=== PATIENT | female | born 1940 | race Caucasian/White ===

== ENCOUNTER 2020-04-02 10:40 | Emergency (ER) | payer MEDICARE ==
[2020-04-02 10:49] VITALS: BP 127/71
[2020-04-02] MEDS ORDERED: Sodium Chloride 0.9% 10 ML Syringe FLUSH PRN (10:53)
[2020-04-02] MEDS ORDERED: Aspirin 81 MG Tab.Chew PO ONE (10:53)
--- NOTE | 2020-04-02 11:13 | EDM.PDOC ---
ED HPI GENERAL MEDICAL PROBLEM - General Chief Complaint: Cardiovascular Problem Stated Complaint: FROM STRESS TEST Time Seen by Provider: 04/02/20 11:10 Source of Information: Reports: Patient, Provider, RN Notes Reviewed History Limitations: Reports: No Limitations - History of Present Illness INITIAL COMMENTS - FREE TEXT/NARRATIVE: 79-year-old female presents emergency department today complaint of chest pain, she was currently undergoing a stress test this morning developed chest pain from her stress test lasted about [address] depressions were appreciated in the inferior leads I did have an opportunity to discuss her case with the supervising physician. She states she has been having chest pain on and off mainly with exertion for the last 4 months it has always gone away with rest however today it seemed to last a little bit longer. She did have a bout of chest pain last night without exertion lasted about 30 minutes. She has no known history of coronary artery disease is a heavy tobacco user was diaphoretic today but no nausea. Pain-free at this time - Related Data Allergies Allergy/AdvReac Type Severity Reaction Status Date / Time No Known Allergies Allergy Verified 04/02/20 10:43 Home Meds: Home Meds amLODIPine [Norvasc] 10 mg PO BEDTIME 04/29/14 [History] Acetaminophen [Arthritis Pain Relief] 650 mg PO Q4H PRN 07/01/15 [History] Albuterol Sulfate [Proventil Hfa] 6.7 gm IH BID PRN 03/30/20 [History] Cholecalciferol (Vitamin D3) [Vitamin D] 2,000 unit PO BEDTIME 03/30/20 [History] Past Medical History HEENT History: Reports: Cataract, Impaired Vision Cardiovascular History: Reports: High Cholesterol, Hypertension Respiratory History: Reports: COPD 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: 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: Musculoskeletal History: Reports: Fracture, Osteoarthritis Hematologic History: Reports: Blood Transfusion(s) - Infectious Disease History Infectious Disease History: Reports: Chicken Pox, Measles, Mumps - Past Surgical History HEENT Surgical History: Reports: Cataract Surgery Cardiovascular Surgical History: Reports: AAA Repair, Aneurysm, Other (See Below) Other Cardiovascular Surgeries/Procedures: coils GI Surgical History: Reports: Colonoscopy, Hernia Repair/Other Musculoskeletal Surgical History: Reports: Hip Replacement Dermatological Surgical History: Reports: None Social & Family History - Tobacco Use Smoking Status *Q: Current Every Day Smoker Years of Tobacco use: 40 Packs/Tins Daily: 0.5 ED ROS GENERAL - Review of Systems Review Of Systems: See Below Constitutional: Reports: Diaphoresis HEENT: Reports: No Symptoms Respiratory: Reports: Shortness of Breath Cardiovascular: Reports: Chest Pain GI/Abdominal: Denies: Nausea ED EXAM, GENERAL - Physical Exam Exam: See Below Exam Limited By: No Limitations General Appearance: Alert, WD/WN, No Apparent Distress Respiratory/Chest: No Respiratory Distress, Lungs Clear, Normal Breath Sounds, No Accessory Muscle Use, Chest Non-Tender Cardiovascular: Regular Rate, Rhythm, No Murmur GI/Abdominal: Soft, Non-Tender Course - Vital Signs Last Recorded V/S: Last Vital Signs Temp 96.1 F L 04/02/20 10:45 Pulse 106 H 04/02/20 10:45 Resp 20 04/02/20 10:45 BP 127/71 04/02/20 10:45 Pulse Ox 96 04/02/20 10:45 - Orders/Labs/Meds Orders: Active Orders 24 hr Category Date Time Status Cardiac Monitoring [RC] .As Directed Care 04/02/20 10:53 Active EKG Documentation Completion [RC] ASDIRECTED Care 04/02/20 10:54 Active Peripheral IV Care [RC] . DIRECTED Care 04/02/20 10:54 Active Sodium Chloride 0.9% [Saline Flush] Med 04/02/20 10:53 Active 10 ml FLUSH ASDIRECTED PRN Peripheral IV Insertion Adult [OM.PC] Stat Oth 04/02/20 10:53 Ordered Saline Lock Insert [OM.PC] Stat Oth 04/02/20 10:53 Ordered EKG 12 Lead [EK] Stat Ther 04/02/20 10:54 Ordered Medication Orders Sodium Chloride (Saline Flush) 10 ml FLUSH ASDIRECTED PRN PRN Reason: Keep Vein Open Labs: Laboratory Tests 04/02/20 04/02/20 Range/Units 11:05 11:05 WBC 7.1 (4.5-11.0) K/uL RBC 5.26 (3.30-5.50) M/uL Hgb 14.8 D (12.0-15.0) g/dL Hct 46.7 (36.0-48.0) % MCV 89 (80-98) fL MCH 28 (27-31) pg MCHC 32 (32-36) % Plt Count 228 (150-400) K/uL Neut % (Auto) 72 H (36-66) % Lymph % (Auto) 21 L (24-44) % [place] % (Auto) 7 H (2-6) % Eos % (Auto) 0 L (2-4) % Baso % (Auto) 0 (0-1) % Sodium 142 (140-148) mmol/L Potassium 3.7 (3.6-5.2) mmol/L Chloride 103 (100-108) mmol/L Carbon Dioxide 28 (21-32) mmol/L Anion Gap 11.4 (5.0-14.0) mmol/L BUN 18 (7-18) mg/dL Creatinine 0.8 (0.6-1.0) mg/dL Est Cr Clr Drug Dosing 37.75 mL/min Estimated GFR (MDRD) > 60 (>60) Glucose 106 (74-106) mg/dL Calcium 9.5 (8.5-10.1) mg/dL Total Bilirubin 0.4 (0.2-1.0) mg/dL AST 18 (15-37) U/L ALT 14 (12-78) U/L Alkaline Phosphatase 75 (46-116) U/L Troponin I 0.039 (0.000-0.056) ng/mL Total Protein 7.4 (6.4-8.2) g/dL Albumin 3.7 (3.4-5.0) g/dL Globulin 3.7 H (2.3-3.5) g/dL Albumin/Globulin Ratio 1.0 L (1.2-2.2) Meds: Medications Generic Name Dose Route Start Last Admin Trade Name Freq PRN Reason Stop Dose Admin Sodium Chloride 10 ml 04/02/20 10:53 Saline Flush FLUSH ASDIRECTED PRN Keep Vein Open Discontinued Medications Generic Name Dose Route Start Last Admin Trade Name Freq PRN Reason Stop Dose Admin Aspirin 324 mg 04/02/20 10:53 04/02/20 11:02 Aspirin PO 04/02/20 10:54 324 mg ONETIME ONE Administration Departure - Departure Time of Disposition: 12:22 Disposition: DC/Tfer to Acute Hospital 02 Reason for Transfer *Q: Primary PCI Indicated Condition: Fair Clinical Impression: Acute coronary syndrome Referrals: PCP,None [Primary Care Provider] - Forms: ED Department Discharge Sepsis Event Note (ED) - Evaluation Sepsis Screening Result: No Definite Risk - Focused Exam Vital Signs: Vital Signs Temp Pulse Resp BP Pulse Ox 04/02/20 10:45 96.1 F L 106 H 20 127/71 96 - My Orders Last 24 Hours: My Active Orders 04/02/20 10:53 Cardiac Monitoring [RC] .As Directed Sodium Chloride 0.9% [Saline Flush] 10 ml FLUSH ASDIRECTED PRN Peripheral IV Insertion Adult [OM.PC] Stat Saline Lock Insert [OM.PC] Stat 04/02/20 10:54 EKG Documentation Completion [RC] ASDIRECTED Peripheral IV Care [RC] . DIRECTED EKG 12 Lead [EK] Stat - Assessment/Plan Last 24 Hours: My Active Orders 04/02/20 10:53 Cardiac Monitoring [RC] .As Directed Sodium Chloride 0.9% [Saline Flush] 10 ml FLUSH ASDIRECTED PRN Peripheral IV Insertion Adult [OM.PC] Stat Saline Lock Insert [OM.PC] Stat 04/02/20 10:54 EKG Documentation Completion [RC] ASDIRECTED Peripheral IV Care [RC] . DIRECTED EKG 12 Lead [EK] Stat Plan: Assessment Acuity = acute Site and laterality = acute coronary syndrome unstable angina Etiology = probable underlying coronary artery disease Manifestations = chest pain with resolution Location of injury = Home Lab values = CBC, CMP unremarkable troponin within the normal range of 0.039 of undetermined significance chest x-ray shows no acute process EKG demonstrates a sinus rhythm with no ST elevation or depression however the EKGs from the stress test do show ST depressions in leads II, III and aVF consistent with an ischemia this did resolve on post EKG Plan Call discussed case Dr. Walker [address] [facility]aran kindly excepted the patient in transport will be transported via EMS ground thus far she has received aspirin and 1 nitro This note was dictated using [employer] voice recognition software please call with any questions on syntax or grammar.
--- NOTE | 2020-04-02 11:27 | CR ---
CHEST: Portable 04/02/2020 at 11:11 AM CLINICAL HISTORY:Chest pain COMPARISON:CT November 2019 FINDINGS: Lungs are emphysematous. Heart size and pulmonary vascularity are normal. There are atherosclerotic changes in the aorta.. No infiltrates are seen. There is no pleural effusion Impression: Emphysematous changes No acute cardiopulmonary process.
[2020-04-02 12:32] VITALS: PULSE 72
== END 2020-04-02 12:58 ==
LOC: JP.ED 10:40
DX: I24.9 Acute ischemic heart disease, unspecified (principal); I10 Essential (primary) hypertension; J44.9 Chronic obstructive pulmonary disease, unspecified; F17.210 Nicotine dependence, cigarettes, uncomplicated; Z79.899 Other long term (current) drug therapy
CPT/HCPCS: 36415; 71045; 80053; 84484; 85025; 93005; 99285; A9270; 93010

== ENCOUNTER 2020-05-12 15:38 | Emergency (ER) | payer MEDICARE ==
--- NOTE | 2020-05-12 16:48 | EDM.PDOC ---
ED HPI GENERAL MEDICAL PROBLEM - General Chief Complaint: Cardiovascular Problem Stated Complaint: CHEST PAINS Time Seen by Provider: 05/12/20 16:48 Source of Information: Reports: Patient History Limitations: Reports: No Limitations - History of Present Illness INITIAL COMMENTS - FREE TEXT/NARRATIVE: for the past 10 days pt has had more chest pressure. She has recently been at [facility] and she had an angiogram which was quite abnormal. She was told that she could not have surgery and she could not have stents. Onset: Gradual, Other ( this has been going on for the past week but has gotten progressively worse. She huts or has pressure when she walks or moves around fast. ) Duration: Hour(s): Location: Reports: Chest Associated Symptoms: Reports: Chest Pain, Shortness of Breath, Other ( this is more of a pressure. ) Chest Pain Score (Numeric/FACES): 8 - Related Data Allergies Allergy/AdvReac Type Severity Reaction Status Date / Time No Known Allergies Allergy Verified 04/02/20 10:43 Home Meds: Home Meds amLODIPine [Norvasc] 10 mg PO BEDTIME 04/29/14 [History] Acetaminophen [Arthritis Pain Relief] 650 mg PO Q4H PRN 07/01/15 [History] Albuterol Sulfate [Proventil Hfa] 6.7 gm IH BID PRN 03/30/20 [History] Cholecalciferol (Vitamin D3) [Vitamin D] 2,000 unit PO BEDTIME 03/30/20 [History] Clopidogrel [Plavix] 75 mg PO DAILY 05/12/20 [History] Isosorbide Mononitrate [Isosorbide Mononitrate ER] 30 mg PO DAILY 05/12/20 [History] Nitroglycerin 0.4 mg SL ASDIRECTED PRN 05/12/20 [History] Rosuvastatin [Crestor] 20 mg PO DAILY 05/12/20 [History] Past Medical History HEENT History: Reports: Cataract, Impaired Vision Cardiovascular History: Reports: High Cholesterol, Hypertension Respiratory History: Reports: COPD 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: Reports: Colon Polyp STUDENT History: Reports: Musculoskeletal History: Reports: Fracture, Osteoarthritis Hematologic History: Reports: Blood Transfusion(s) - Infectious Disease History Infectious Disease History: Reports: Chicken Pox, Measles, Mumps - Past Surgical History HEENT Surgical History: Reports: Cataract Surgery Cardiovascular Surgical History: Reports: AAA Repair, Aneurysm, Other (See Below) Other Cardiovascular Surgeries/Procedures: coils GI Surgical History: Reports: Colonoscopy, Hernia Repair/Other Musculoskeletal Surgical History: Reports: Hip Replacement Dermatological Surgical History: Reports: None Social & Family History - Tobacco Use Tobacco Use Status *Q: Current Every Day Tobacco User Years of Tobacco use: 60 Packs/Tins Daily: 0.5 - Caffeine Use Caffeine Use: Reports: Coffee - Recreational Drug Use Recreational Drug Use: No ED ROS GENERAL - Review of Systems Review Of Systems: See Below Constitutional: Reports: Weakness HEENT: Reports: No Symptoms Respiratory: Reports: Shortness of Breath Cardiovascular: Reports: Other ( chest pressure. ) Endocrine: Reports: No Symptoms GI/Abdominal: Reports: No Symptoms : Reports: No Symptoms Musculoskeletal: Reports: No Symptoms Skin: Reports: No Symptoms Neurological: Reports: No Symptoms ED EXAM, GENERAL - Physical Exam Exam: See Below Free Text/Narrative:: pt is having mild chest pressure at this point She states this had gotten quite severe this afternoon and when she was walking around. Exam Limited By: No Limitations General Appearance: Alert, Anxious, Mild Distress Ears: Normal TMs Ear Exam: Right Ear: Other Nose: Normal Inspection Throat/Mouth: Normal Inspection Head: Atraumatic Neck: Normal Inspection Respiratory/Chest: No Respiratory Distress Cardiovascular: Regular Rate, Rhythm, Other (pt does not have chest wall tenderness. ) GI/Abdominal: Soft, Non-Tender (Female) Exam: Deferred Rectal (Female) Exam: Deferred Back Exam: Normal Inspection Extremities: Normal Inspection Neurological: Alert, Oriented, Normal Cognition Psychiatric: Anxious Course - Vital Signs Last Recorded V/S: Last Vital Signs Temp 36.4 C 05/12/20 16:12 Pulse 97 05/12/20 18:51 Resp 19 05/12/20 18:51 BP 107/74 05/12/20 18:51 Pulse Ox 97 05/12/20 18:51 - Orders/Labs/Meds Labs: Laboratory Tests 05/12/20 05/12/20 05/12/20 Range/Units 16:57 16:57 16:57 WBC 8.1 (4.5-11.0) K/uL RBC 4.83 (3.30-5.50) M/uL Hgb 14.0 (12.0-15.0) g/dL Hct 43.0 (36.0-48.0) % MCV 89 (80-98) fL MCH 29 (27-31) pg MCHC 33 (32-36) % Plt Count 260 (150-400) K/uL Neut % (Auto) 72 H (36-66) % Lymph % (Auto) 18 L (24-44) % [place] % (Auto) 8 H (2-6) % Eos % (Auto) 1 L (2-4) % Baso % (Auto) 1 (0-1) % APTT (27.0-36.0) sec Sodium 138 L (140-148) mmol/L Potassium 3.4 L (3.6-5.2) mmol/L Chloride 102 (100-108) mmol/L Carbon Dioxide 28 (21-32) mmol/L Anion Gap 11.4 (5.0-14.0) mmol/L BUN 13 (7-18) mg/dL Creatinine 0.7 (0.6-1.0) mg/dL Est Cr Clr Drug Dosing 43.15 mL/min Estimated GFR (MDRD) > 60 (>60) Glucose 105 (74-106) mg/dL Calcium 9.6 (8.5-10.1) mg/dL Total Bilirubin 0.3 (0.2-1.0) mg/dL AST 22 (15-37) U/L ALT 25 D (12-78) U/L Alkaline Phosphatase 73 (46-116) U/L Troponin I 0.114 H* (0.000-0.056) ng/mL Total Protein 7.2 (6.4-8.2) g/dL Albumin 3.8 (3.4-5.0) g/dL Globulin 3.4 (2.3-3.5) g/dL Albumin/Globulin Ratio 1.1 L (1.2-2.2) Urine Color (YELLOW) Urine Appearance (CLEAR) Urine pH (5.0-8.0) Ur Specific [place] (1.008-1.030) Urine Protein (NEGATIVE) mg/dL Urine Glucose (UA) (NEGATIVE) mg/dL Urine Ketones (NEGATIVE) mg/dL Urine Occult Blood (NEGATIVE) Urine Nitrite (NEGATIVE) Urine Bilirubin (NEGATIVE) Urine Urobilinogen (0.2-1.0) EU/dL Ur Leukocyte Esterase (NEGATIVE) Urine RBC (0-5) Urine WBC (0-5) Ur Epithelial Cells Amorphous Sediment Urine Bacteria Urine Mucus 05/12/20 05/12/20 Range/Units 17:15 18:11 WBC (4.5-11.0) K/uL RBC (3.30-5.50) M/uL Hgb (12.0-15.0) g/dL Hct (36.0-48.0) % MCV (80-98) fL MCH (27-31) pg MCHC (32-36) % Plt Count (150-400) K/uL Neut % (Auto) (36-66) % Lymph % (Auto) (24-44) % [place] % (Auto) (2-6) % Eos % (Auto) (2-4) % Baso % (Auto) (0-1) % APTT 25.4 L (27.0-36.0) sec Sodium (140-148) mmol/L Potassium (3.6-5.2) mmol/L Chloride (100-108) mmol/L Carbon Dioxide (21-32) mmol/L Anion Gap (5.0-14.0) mmol/L BUN (7-18) mg/dL Creatinine (0.6-1.0) mg/dL Est Cr Clr Drug Dosing mL/min Estimated GFR (MDRD) (>60) Glucose (74-106) mg/dL Calcium (8.5-10.1) mg/dL Total Bilirubin (0.2-1.0) mg/dL AST (15-37) U/L ALT (12-78) U/L Alkaline Phosphatase (46-116) U/L Troponin I (0.000-0.056) ng/mL Total Protein (6.4-8.2) g/dL Albumin (3.4-5.0) g/dL Globulin (2.3-3.5) g/dL Albumin/Globulin Ratio (1.2-2.2) Urine Color Yellow (YELLOW) Urine Appearance Clear (CLEAR) Urine pH 7.0 (5.0-8.0) Ur Specific [place] 1.020 (1.008-1.030) Urine Protein Negative (NEGATIVE) mg/dL Urine Glucose (UA) Negative (NEGATIVE) mg/dL Urine Ketones Negative (NEGATIVE) mg/dL Urine Occult Blood Negative (NEGATIVE) Urine Nitrite Negative (NEGATIVE) Urine Bilirubin Negative (NEGATIVE) Urine Urobilinogen 0.2 (0.2-1.0) EU/dL Ur Leukocyte Esterase Negative (NEGATIVE) Urine RBC 0-5 (0-5) Urine WBC 0-5 (0-5) Ur Epithelial Cells Rare Amorphous Sediment Few Urine Bacteria Moderate Urine Mucus Not seen Meds: Medications Discontinued Medications Generic Name Dose Route Start Last Admin Trade Name Freq PRN Reason Stop Dose Admin Aspirin 324 mg 05/12/20 16:49 05/12/20 16:53 Aspirin PO 05/12/20 16:50 324 mg ONETIME ONE Administration Clopidogrel Bisulfate 300 mg 05/12/20 18:05 05/12/20 18:18 Plavix PO 05/12/20 18:06 300 mg ONETIME ONE Administration Heparin Sodium (Porcine) 4,000 units 05/12/20 18:07 05/12/20 18:19 Heparin Sodium IVPUSH 05/12/20 18:08 4,000 units ONETIME ONE Administration Nitroglycerin Confirm 05/12/20 18:28 05/12/20 18:31 Nitrostat Administered 05/12/20 18:29 Not Given Dose 0.4 mg .ROUTE .STK-MED ONE Nitroglycerin 0.4 mg 05/12/20 18:28 05/12/20 18:31 Nitrostat SL 0.4 mg Q5M PRN Administration Chest Pain - Re-Assessments/Exams Free Text/Narrative Re-Assessment/Exam: 05/12/20 17:49 ekg shows some possible ischemia anterior lateral. Her trop is elevated to .114. She is not having alot of pain at this point. She does feel that exercise does make it worse. 05/12/20 17:49 05/12/20 18:01 05/12/20 18:07 this was discussed with Dr Li and he felt this should be relooked at She will be admitted to the hospitalist. Departure - Departure Time of Disposition: 19:15 Disposition: DC/Tfer to Acute Hospital 02 Reason for Transfer *Q: Primary PCI Indicated Condition: Fair Clinical Impression: Non-Q wave infarction, Coronary artery disease, Tobacco abuse Referrals: Denton Calles MD [Primary Care Provider] - Forms: ED Department Discharge Care Plan Goals: transfer to [facility]. Sepsis Event Note (ED) - Evaluation Sepsis Screening Result: No Definite Risk
[2020-05-12] MEDS ORDERED: Aspirin 81 MG Tab.Chew PO ONE (16:49)
[2020-05-12] MEDS ORDERED: Clopidogrel 75 MG Tab PO ONE (18:05)
[2020-05-12] MEDS ORDERED: Heparin Sodium 5,000 Units/ML Vial IVPUSH ONE (18:07)
[2020-05-12] MEDS ORDERED: Nitroglycerin 0.4 MG Tab.SL ONE (18:28)
[2020-05-12] MEDS ORDERED: Nitroglycerin 0.4 MG Tab.SL SL PRN (18:28)
[2020-05-12 18:52] VITALS: BP 107/74; PULSE 97
--- NOTE | 2020-05-13 09:03 | CR ---
CHEST: Portable 05/12/2020 at 5:14 PM CLINICAL HISTORY:SOB COMPARISON:04/02/2020 FINDINGS: Lungs are moderately emphysematous. There is a double density adjacent to the aortic arch. This correlates to aneurysmal dilatation seen on March CT. This appears more prominent on prior study which is likely related to patient position. No infiltrates are seen. THERE ARE NO EFFUSIONS IMPRESSION: Known aneurysmal dilatation of the aortic arch. This appears slightly more prominent on the current study which is likely positional in nature. Severe emphysematous changes
== END 2020-05-12 19:08 ==
LOC: JP.ED 15:38
DX: I21.4 Non-ST elevation (NSTEMI) myocardial infarction (principal); I25.10 Atherosclerotic heart disease of native coronary artery without angina pectoris; I10 Essential (primary) hypertension; E78.00 Pure hypercholesterolemia, unspecified; J44.9 Chronic obstructive pulmonary disease, unspecified; F17.210 Nicotine dependence, cigarettes, uncomplicated; Z79.02 Long term (current) use of antithrombotics/antiplatelets; Z79.899 Other long term (current) drug therapy
CPT/HCPCS: 36415; 71045; 80053; 81001; 84484; 85025; 85730; 93005; 93010; 96374; 99285; A9270; J1644

== ENCOUNTER 2021-10-11 08:55 | Emergency (ER) | payer MEDICARE ==
[2021-10-11 09:09] VITALS: BP 188/91; PULSE 80
[2021-10-11] MEDS ORDERED: Sodium Chloride 0.9% 10 ML Syringe FLUSH PRN (10:06)
[2021-10-11] MEDS ORDERED: Sodium Chloride 0.9% 1,000 ML IV SCH (10:15)
[2021-10-11] MEDS ORDERED: Propofol 200 MG/20 ML SDV ONE (10:45)
== END 2021-10-11 11:55 | disposition home or self-care (01) ==
LOC: JP.ED 08:55
DX: S73.005A Unspecified dislocation of left hip, initial encounter (principal); E78.00 Pure hypercholesterolemia, unspecified; I10 Essential (primary) hypertension; J44.9 Chronic obstructive pulmonary disease, unspecified; Z72.0 Tobacco use; Z79.899 Other long term (current) drug therapy; Z79.82 Long term (current) use of aspirin; X50.1XXA Overexertion from prolonged static or awkward postures, initial encounter
CPT/HCPCS: 73501-26-LT; 73501-LT; 99282; 99283-25; J2704; J3490; J7030

== ENCOUNTER 2023-08-14 07:38 | Observation (INO) | payer MEDICARE ==
[2023-08-14 07:54] LABS: BASOPHILS ABSOLUTE AUTO 0.06 K/uL (0.00-0.10); BASOPHILS PERCENT AUTO 0.3 % (0.1-1.3); HEMATOCRIT 47.4 % (34.3-46.0); HEMOGLOBIN 15.5 g/dL (11.2-15.5); IMMATURE GRAN ABSOLUTE AUTO 0.08 K/uL (0.00-0.23); IMMATURE GRAN PERCENT AUTO 0.4 % (0.0-0.7); LYMPHOCYTES PERCENT AUTO 7.8 % (11.4-47.7); MEAN CORPUSCULAR HEMOGLOBIN 28.9 pg (31.6-35.5); MEAN CORPUSCULAR HGB CONC 32.7 g/dL (31.6-35.5); MEAN CORPUSCULAR VOLUME 88.3 fL (81.4-99.0); MONOCYTES ABSOLUTE AUTO 1.76 K/uL (0.20-0.90); MONOCYTES PERCENT AUTO 9.2 % (3.3-12.6); NEUTROPHILS ABSOLUTE AUTO 15.81 K/uL (1.0-7.6); NEUTROPHILS PERCENT AUTO 82.3 % (40.0-78.1); PLATELET COUNT,PLT 218 K/uL (130-375); RED BLOOD CELL COUNT 5.37 M/uL (3.77-5.24); WHITE BLOOD CELL COUNT,WBC 19.2 K/uL (3.2-11.0)
[2023-08-14 08:12] LABS: INR 1.3; PROTHROMBIN TIME 12.8 sec (9.2-10.6)
[2023-08-14 08:15] LABS: BLOOD UREA NITROGEN,BUN 18 mg/dL (7-18); CALCIUM 8.9 mg/dL (8.5-10.1); CARBON DIOXIDE,CO2 28 mmol/L (21-32); CHLORIDE,CL 98 mmol/L (100-108); CREATINE KINASE,CK 560 U/L (26-192); CREATININE 1.2 mg/dL (0.6-1.0); ESTIMATED GFR 45 mL/min (>60); GLUCOSE RANDOM 311 mg/dL (74-106); POTASSIUM,K 3.2 mmol/L (3.6-5.2); SODIUM,NA 139 mmol/L (140-148)
[2023-08-14 08:16] LABS: ANION GAP 16.2 mmol/L (5.0-14.0)
[2023-08-14] MEDS ORDERED: hydrALAZINE 20 MG/ML SDV IVPUSH ONE (08:31)
[2023-08-14 10:16] VITALS: BP 97/52; PULSE 111
[2023-08-14] MEDS ORDERED: Ondansetron 4 MG Tab.DIS PO PRN (10:54)
[2023-08-14] MEDS ORDERED: Acetaminophen 650 MG Supp RECTAL PRN (10:54)
[2023-08-14] MEDS ORDERED: LORazepam ORAL Concentrate 1MG/0.5ML U/D BUCCAL PRN (10:54)
[2023-08-14] MEDS ORDERED: LORazepam 2 MG/ML SDV IM PRN (10:54)
[2023-08-14] MEDS ORDERED: LORazepam 2 MG/ML SDV IV PRN (11:11)
[2023-08-14] MEDS ORDERED: Scopalamine 1mg/3day Transdermal Patch TRDERM SCH (12:00)
[2023-08-14] MEDS: Morphine 10 MG/0.5 ML Oral Syringe SL PRN ×3 (13:06→17:58)
[2023-08-15] MEDS ORDERED: SCOPOLAMINE PATCH CHECK TOP SCH (09:00)
== END 2023-08-14 20:20 | disposition expired ==
LOC: JP.ED 07:38 → JP.2SS 09:03
PROVIDERS: ADMIT Hospitalist; ATTEND Hospitalist
DX: I66.9 Occlusion and stenosis of unspecified cerebral artery (principal); J44.9 Chronic obstructive pulmonary disease, unspecified; E78.00 Pure hypercholesterolemia, unspecified; I10 Essential (primary) hypertension; F32.A Depression, unspecified; F17.210 Nicotine dependence, cigarettes, uncomplicated; Z98.890 Other specified postprocedural states; Z79.899 Other long term (current) drug therapy
CPT/HCPCS: 36415; 70450; 72125; 76377; 80048; 82550; 83605; 85025; 85610; 93005; A9270; G0378; J0360; U0002; 93010; 99285